=== PATIENT | male | born 1950 ===

== ENCOUNTER 2016-12-29 13:09 | Day surgery (SDC) | payer MEDICARE ==
[2016-12-27 15:35] VITALS: BMI 36.4
[2016-12-29] MEDS ORDERED: Iodixanol 320 MG/ML 100 ML BOTTLE IV ONE (13:27)
[2016-12-29] MEDS ORDERED: Iodixanol 320 MG/ML 200 ML BOTTLE IV ONE (13:27)
[2016-12-29] MEDS ORDERED: Midazolam 2 MG/2 ML VIAL ONE (13:53)
[2016-12-29] MEDS ORDERED: Acetylcysteine 20% Inhal Soln (4ml) ONE ×2 (15:02→15:08)
[2016-12-29 17:13] VITALS: TEMP 98.2
[2016-12-29 17:15] VITALS: BP 144/84; PULSE 93; RESP 16; O2SAT 96
--- NOTE | 2016-12-30 11:12 | CARDCATH ---
PROCEDURE DATE: 12/29/2016 The patient is a 66-year-old male who has a history of hypertension, diabetes mellitus, pres ented to [facility] because of shortness of breath. [id number] myocardial infarction is ruled out. The patient was found to be in advanced renal insufficiency. The patient practically has no m edical followup. He used antihypertensive medications from [place] in [place]. Cardiac ca theterization was recommended. The procedure and its risks, including risk of worsening underlying r enal insufficiency, was explained to the patient. The patient was premedicated with Mucomyst and was transferred to [facility] for the cardiac catheterization. The patient also was premedicated w ith Solu-Medrol, Benadryl and Pepcid because of his ALLERGY TO SHELLFISH. PROCEDURE: After local infiltration with 1% lidocaine, a 6-Somali sheath was placed in right femoral artery. Left and right coronary angiography performed with 6-Somali JL4 and JR Kenton diagnostic catheter. ANGIOGRAPHIC FINDINGS: Selective injection of left coronary artery revealed left main to be a large caliber normal vessel, bifurcated into a large caliber LAD and a large caliber dominant circumflex ar damian. LAD circulation was angiographically unremarkable except for 80% stenosis of the very proximal segment of the first diagonal branch, which was a small sized branch. The circumflex artery had 60- 70% stenosis in its middle portion after the origin of the second obtuse marginal branch. The second obtuse marginal branch itself had 50% proximal narrowing. Selective injection of right coronary art rosa revealed a medium-sized codominant vessel that had 80% proximal stenosis. Left ventriculogram wa s not performed to reduce the dye load. CONCLUSION: Significant proximal right coronary artery disease as well as borderline disease of the midcircumflex artery and a circumflex codominant circulation with significant proximal disease of the first diagonal branch and a small vessel diagonal branch. Left ventricular systolic function was pr eserved as per the echocardiogram results. RECOMMENDATIONS: Continued medical therapy for now. If renal insufficiency remains stable and the p atient agrees for PCI to the proximal right coronary artery, that will be then considered next week. Jerry Tee MD cc:Ye Gonzalez MD [id number] TT: 12/29/2016 15:03:44 mn
== END 2016-12-29 18:00 | disposition short-term general hospital (02) ==
LOC: C.CATHLAB 13:09
PROVIDERS: ATTEND Specialist
DX: I25.10 Atherosclerotic heart disease of native coronary artery without angina pectoris (principal); I10 Essential (primary) hypertension; E11.9 Type 2 diabetes mellitus without complications; N28.9 Disorder of kidney and ureter, unspecified; Z91.013 Allergy to seafood
CPT/HCPCS: 93452; J1940; J2250; Q9966; Q9967